=== PATIENT | female | born 1945 | race Caucasian/White ===

== ENCOUNTER 2016-04-23 19:44 | Emergency (ER) | payer MEDICARE, BC ==
--- NOTE | 2016-04-23 20:10 | Emergency Department Record ---
History of Present Illness - General Chief Complaint: Fall Injury Stated Complaint: LT EYE INJURY,FELL Time Seen by Provider: 04/23/16 20:05 Source: Patient Mode of Arrival: Ambulatory Limitations: No limitations - History of Present Illness Initial Comments: 71 yo female presents to ED following a fall injury. Patient reports that she fell into a garden hoe that struck her in aria left eyeglass lens (shatter-proof , and did not break) resulting in injury to the left rekha-orbital region. Patient reports mild blurred vision and pain to the left medial nasal bone region. Patient denies LOC or neck injury, denies extremity pain, injury, weakness, numbness, or tingling. MD Complaint: Fall Onset/Timin -: Minutes(s) Fall From: Standing When Fall Occurred: Just prior to arrival Fall Witnessed: No Place Fall Occurred: Home Loss of Consciousness: None Prolonged Down Time?: No Symptoms Prior to Fall: None Location: Face, Eyes Severity scale (1-10): 3 Quality: Aching Context: Tripped/slipped Associated Symptoms: Denies - [place]ivia Coma Scale Eye Response: (4) Open spontaneously Motor Response: (6) Obeys commands Verbal Response: (5) Oriented [place] Total: 15 - Related Data Home Medications Medication Instructions Recorded Confirmed Last Taken Alendronate Sodium 70 mg PO QWEEK ml 11/27/15 Unknown Alprazolam 0.5 mg PO TID tab 11/27/15 Unknown Aspirin [Aspir 81] 81 mg PO QD tab 11/27/15 Unknown Atorvastatin Calcium [Lipitor] 40 mg PO QD tab 11/27/15 Unknown Ergocalciferol (Vitamin D2) 50,000 unit PO QWEEK tab 11/27/15 Unknown [Vitamin D2] Esomeprazole Magnesium [Nexium] 40 mg PO BID cap 11/27/15 Unknown Loratadine 10 mg PO DAILY tab 11/27/15 Unknown Losartan Potassium 50 mg PO DAILY tab 11/27/15 Unknown Multivitamin/Iron/Folic Acid 1 tab PO QD tab 11/27/15 Unknown [Centrum Complete Multivit Tab] Nitroglycerin 0.4 mg SL DAILY PRN tab 11/27/15 Unknown Nortriptyline HCl 50 mg PO QHS cap 11/27/15 Unknown [place]-3/Dha/Epa/Fish Oil [Fish Oil] 1,200 mg PO QD 11/27/15 Unknown Pregabalin [Lyrica] 100 mg PO TID cap 11/27/15 Unknown Allergies Allergy/AdvReac Type Severity Reaction Status Date / Time amoxicillin Allergy Unknown Unverified 07/01/13 10:00 budesonide [From PULMICORT] Allergy Unknown Unverified 07/01/13 10:00 buspirone Allergy Unknown Unverified 07/01/13 10:00 citalopram Allergy Unknown Unverified 07/01/13 10:00 clavulanic acid Allergy Unknown Unverified 07/01/13 10:00 codeine Allergy Unknown Unverified 07/01/13 10:00 fenofibrate Allergy Unknown Unverified 07/01/13 10:00 fluticasone propionate Allergy Unknown Unverified 07/01/13 10:00 [From ADVAIR DISKUS] gemfibrozil Allergy Unknown Unverified 07/01/13 10:00 ketoprofen Allergy Unknown Unverified 07/01/13 10:00 lidocaine Allergy Unknown Unverified 07/01/13 10:00 morphine Allergy Unknown Unverified 07/01/13 10:00 niacin Allergy Unknown Unverified 07/01/13 10:00 pravastatin sodium Allergy Unknown Unverified 07/01/13 10:00 [From PRAVACHOL] salmeterol xinafoate Allergy Unknown Unverified 07/01/13 10:00 [From ADVAIR DISKUS] simvastatin Allergy Unknown Unverified 07/01/13 10:00 venlafaxine Allergy Unknown Unverified 07/01/13 10:00 (Continued): Allergy Unknown Uncoded 07/01/13 10:00 Allergies: Allergy Unknown Uncoded 07/01/13 10:00 Travel Screening - Travel/Exposure Within Last 30 Days Have you traveled within the last 30 days?: No - Travel/Exposure Within Last Year Have you traveled outside the [place] in the last year?: No - Additonal Travel Details Have you been exposed to anyone with a communicable illness?: No - Travel Symptoms Symptom Screening: None Review of Systems Constitutional: Denies: Chills, Fever, Malaise, Night sweats Eyes: Reports: Eye pain, Photophobia. Denies: Eye discharge ENT: Denies: Congestion, Ear pain, Epistaxis Respiratory: Denies: Cough, Dyspnea Cardiovascular: Denies: Chest pain, Dyspnea on exertion Endocrine: Denies: Fatigue, Heat or cold intolerance Gastrointestinal: Denies: Abdominal pain, Nausea, Vomiting Genitourinary: Denies: Dysuria, Frequency Musculoskeletal: Denies: Arthralgia, Back pain, Gout, Joint swelling Skin: Denies: Bruising, Change in color Neurological: Denies: Abnormal gait, Confusion, Headache, Seizure Psychiatric: Denies: Anxiety Hematological/Lymphatic: Denies: Anemia, Blood Clots Past Medical History - SOCIAL HISTORY Smoking Status: Current every day smoker Alcohol Use: Occassional Drug Use: None - RESPIRATORY Hx Respiratory Disorders: No - CARDIOVASCULAR Hx Cardio Disorders: Yes Hx Heart Attack: Yes Hx Hypertension: Yes Comment:: bypass - NEURO Hx Neuro Disorders: No - GI Hx GI Disorders: Yes Hx Reflux: Yes - Hx Genitourinary Disorders: Yes Hx Kidney Stones: Yes - ENDOCRINE Hx Endocrine Disorders: No - MUSCULOSKELETAL Hx Musculoskeletal Disorders: Yes Hx Arthritis: Yes - PSYCH Hx Psych Problems: Yes Hx Anxiety: Yes Hx Depression: Yes - HEMATOLOGY/ONCOLOGY Hx Hematology/Oncology Disorders: No Family Medical History Any Significant Family History?: No Physical Exam - General General Appearance: Alert, Oriented x3, Cooperative, No acute distress Limitations: No limitations - Head Head exam: Normocephalic, Other (abrasion noted to the left medial orbital region) Head exam detail: Abrasion. negative: Contusion, Murphy's sign, General tenderness, Hematoma, Laceration - Eye Eye exam: Normal appearance, Conjunctival injection (left), Other (Eye was anesthetized with alcaine drops, stained with flourescein, no abrasion noted on examination, no FB's idetified on lid eversion, negative Mika's sign, and EOMI are intact. Pupil is reactive as well.). negative: Periorbital swelling, Periorbital tenderness, Scleral icterus - ENT Ear exam: negative: Auricular hematoma, Auricular trauma Nasal Exam: negative: Active bleeding, Discharge, Dried blood, Foreign body Mouth exam: negative: Drooling, Laceration, Muffled voice, Tongue elevation - Neck Neck exam: Normal inspection. negative: Meningismus, Tenderness - Respiratory Respiratory exam: Normal lung sounds bilaterally. negative: Rales, Respiratory distress, Rhonchi, Stridor - Cardiovascular Cardiovascular Exam: Regular rate, Normal rhythm, Normal heart sounds - GI/Abdominal GI/Abdominal exam: Soft. negative: Rebound, Rigid, Tenderness - Rectal Rectal exam: Deferred - exam: Deferred - Extremities Extremities exam: Normal inspection. negative: Calf tenderness, Pedal edema, Tenderness - Back Back exam: Denies: CVA tenderness (R), CVA tenderness (L) - Neurological Neurological exam: Alert, Normal gait, Oriented X3 - Psychiatric Psychiatric exam: Normal affect, Normal mood - Skin Skin exam: Normal color. negative: Abrasion Type of lesion: negative: abrasion Course Vital Signs 04/23/16 19:46 Temperature 97.8 F Pulse Rate 95 H Respiratory 18 Rate Blood Pressure 142/92 Pulse Ox 96 - Reevaluation(s) Reevaluation #1: 04/23/16 20:58 VA reviewed, 20/40 Left, 20/40 right, and 20/[address] Brain: No acute process CT Facial Bones: Minimally displaced nasal bone fracture left Patient was updated on all results, reports that she is feeling much better, and appears stable for discharge at this time. Patient has no sign of globe trauma or injury on examination. 04/23/16 21:07 Disposition Disposition: Discharge Clinical Impression: Nasal bone fracture Qualifiers: Encounter type: initial encounter Fracture type: closed Qualified Code(s): S02.2XXA - Fracture of nasal bones, initial encounter for closed fracture Abrasion of periorbital region of face Qualifiers: Encounter type: initial encounter Qualified Code(s): S00.81XA - Abrasion of other part of head, initial encounter Disposition: Home, Self-Care Condition: (2) Stable Instructions: Nasal Fracture (ED) Additional Instructions: Return to ED if your symptoms worsen or if you have any concerns. Follow-up with your family doctor in 3-5 days for further evaluation of your nasal bone fracture. Forms: Patient Portal Access Time of Disposition: 21:06
[2016-04-23] MEDS ORDERED: PROPARACAINE HCL OPTH 15ML BTL OPTH ONE (21:33)
--- NOTE | 2016-04-28 08:31 | CT SCAN REPORT ---
EXAM: CT SCAN OF THE BRAIN WITHOUT CONTRAST HISTORY: PATIENT FELL AND INJURED THE LEFT EYE REGION. HEADACHE AND LIGHT SENSITIVITY. TECHNIQUE: Standard CT imaging of the brain was performed in the axial plane without contrast. Additional coronal and sagittal reformatted images were also performed. Comparison: 05/11/13. Encounter: Initial. Hand dominance: Right. FINDINGS: The ventricles and subarachnoid spaces are normal. There is no mass , mass effect, intracranial hemorrhage, visible acute infarct, or abnormal extraaxial fluid. The visualized portions of the orbits, sinuses, and mastoids are normal. IMPRESSION: NEGATIVE NONCONTRAST CT SCAN OF THE BRAIN. JOB NUMBER: [id number] MTDD
--- NOTE | 2016-04-28 08:35 | CT SCAN REPORT ---
EXAM: CT SCAN OF THE FACIAL BONES WITHOUT CONTRAST HISTORY: PATIENT FELL AND STRUCK THE LEFT EYE REGION. HEADACHE AND LIGHT SENSITIVITY. TECHNIQUE: Standard CT imaging of the facial bones was performed in the axial plane without contrast. Additional coronal and sagittal reformatted images were also performed. Comparison: None. Encounter: Initial. Hand dominance: Right. FINDINGS: The intraorbital contents are normal. There is a minimally displaced fracture involving the left nasal bone. The facial bones are otherwise normal. The paranasal sinuses are clear. The remaining facial soft tissues are unremarkable. IMPRESSION: 1. MINIMALLY DISPLACED LEFT NASAL BONE FRACTURE. 2. OTHERWISE, UNREMARKABLE CT SCAN OF THE FACIAL BONES. JOB NUMBER: [id number] MTDD
== END 2016-04-23 21:26 | disposition home or self-care (01) ==
LOC: ER 19:44
DX: S02.2XXA Fracture of nasal bones, initial encounter for closed fracture (principal); S00.212A Abrasion of left eyelid and periocular area, initial encounter; H53.8 Other visual disturbances; W18.09XA Striking against other object with subsequent fall, initial encounter; Y93.H2 Activity, gardening and landscaping; Y92.009 Unspecified place in unspecified non-institutional (private) residence as the place of occurrence of the external cause
CPT/HCPCS: 70450; 70486; 99283; 99284